=== PATIENT | male | born 1985 | race Caucasian/White ===

== ENCOUNTER → 2021-10-30 | Outpatient (CLI) | payer OTHER ==
[~2021-10-30] MED LIST: MOBIC 7.5MG7.5 MG PO; MS CONTIN 115 MG/TAB PO; PERCOCET 325 MG1 TAB PO; ROBAXIN 50500 MG/TAB PO
== END ==
LOC: COL.RAD 08:04
DX: M48.02 Spinal stenosis, cervical region (principal); M51.36 Other intervertebral disc degeneration, lumbar region; M51.26 Other intervertebral disc displacement, lumbar region

== ENCOUNTER → 2022-01-07 | Outpatient (CLI) | payer OTHER | LOC: MHCPAIN 15:25 | DX: M47.812 Spondylosis without myelopathy or radiculopathy, cervical region (principal); M54.2 Cervicalgia; M79.2 Neuralgia and neuritis, unspecified; G89.29 Other chronic pain | CPT/HCPCS: G0463 ==